=== PATIENT | female | born 2000 ===

== ENCOUNTER 2021-05-12 09:49 | Emergency (ER) | payer SELFPAY ==
[2021-05-12 10:25] VITALS: BP 134/91
[2021-05-12 10:29] LABS: Bacteria,Urine 3+ /HPF (Negative); Bilirubin,Urine NEG (Negative); Blood,Urine NEG (Negative); Color,Urine Yellow (Yellow); Mucus,Urine 3+ /HPF; Urobilinogen,Urine < 2.0 mg/dL (<2.0)
[2021-05-12 10:37] LABS: Basophils % (Auto) 0.4 % (0.0-1.8); Eosinophils # (Auto) 0.2 K/mm3 (0.0-0.4); Eosinophils % (Auto) 4.8 % (0.0-4.3); Hematocrit 36.4 % (30.3-42.9); Hemoglobin 12.7 gm/dl (10.1-14.3); Lymphocytes # (Auto) 1.1 K/mm3 (1.2-5.4); Mean Corpuscular HGB Conc 35 % (30-34); Mean Corpuscular Volume 97 fl (79-97); Monocytes # (Auto) 0.3 K/mm3 (0.0-0.8); Monocytes % (Auto) 6.2 % (0.0-7.3); Platelet Count 252 K/mm3 (140-440); Red Blood Count 3.76 M/mm3 (3.65-5.03); Red Cell Distribution Width 12.2 % (13.2-15.2)
--- NOTE | 2021-05-12 10:38 | Emergency Department Report ---
ED Abdominal Pain HPI - General Chief Complaint: Nausea/Vomiting/Diarrhea Stated Complaint: , DONT FEEL WELL Time Seen by Provider: 05/12/21 10:00 Source: patient Mode of arrival: Ambulatory Limitations: No Limitations - History of Present Illness Initial Comments: 20-year-old female presents to the emergency room for nausea but feels like food comes up to the back of her throat. She states she took a home test about 3 days ago and is positive. She states her last menstrual period was April 11, 2021. She does report right upper quadrant abdominal pain and righ middle abdominal pain. She states that it is throbbing and achy.. She is 3 para 2 with for last baby 4 months ago. She denies any vaginal discharge denies any vaginal bleeding no pelvic cramping. She denies any dysuria but does report urinary urgency and frequency. She states she just has not been feeling well for about a week. She states that she has been having nausea but has not vomited. Patient does not have a primary care provider. She delivered her last baby in [place]. MD Complaint: abdominal pain - Related Data Previous Rx's Medication Instructions Recorded Last Taken Type Nitrofurantoin Nicol[place]/M-Cryst 100 mg PO Q12HR 7 Days #14 capsule 05/12/21 Unknown Rx [Macrobid CAP] Allergies Allergy/AdvReac Type Severity Reaction Status Date / Time No Known Allergies Allergy Verified 05/12/21 09:58 ED Review of Systems ROS: Stated complaint: , DONT FEEL WELL Other details as noted in HPI ED Past Medical Hx - Medications Home Medications: Home Medications Medication Instructions Recorded Confirmed Last Taken Type Nitrofurantoin [place]/M-Cryst 100 mg PO Q12HR 7 Days #14 capsule 05/12/21 Unknown Rx [Macrobid CAP] ED Physical Exam - General Limitations: No Limitations General appearance: alert, in no apparent distress - Head Head exam: Present: atraumatic, normocephalic - Eye Eye exam: Present: normal appearance - ENT ENT exam: Present: mucous membranes moist - Neck Neck exam: Present: normal inspection - Respiratory Respiratory exam: Present: normal lung sounds bilaterally. Absent: respiratory distress, accessory muscle use - Cardiovascular Cardiovascular Exam: Present: regular rate - GI/Abdominal GI/Abdominal exam: Present: soft, tenderness (Right upper quadrant), normal bowel sounds. Absent: distended, guarding, rebound - Extremities Exam Extremities exam: Present: normal inspection, full ROM - Back Exam Back exam: Present: normal inspection - Neurological Exam Neurological exam: Present: alert, oriented X3, normal gait - Psychiatric Psychiatric exam: Present: normal affect, normal mood - Skin Skin exam: Present: warm, dry, intact, normal color. Absent: rash ED Course Vital Signs 05/12/21 10:10 Temperature 98.2 F Pulse Rate 90 Respiratory 18 Rate Blood Pressure 134/91 [Left] O2 Sat by Pulse 98 Oximetry ED Medical Decision Making - Lab Data Result diagrams: 05/12/21 10:24 05/12/21 10:24 Laboratory Tests 05/12/21 05/12/21 05/12/21 10:24 10:24 10:24 WBC 4.6 RBC 3.76 Hgb 12.7 Hct 36.4 MCV 97 MCH 34 H MCHC 35 H RDW 12.2 L Plt Count 252 Lymph % (Auto) 25.0 Nicollet % (Auto) 6.2 Eos % (Auto) 4.8 H Baso % (Auto) 0.4 Lymph # (Auto) 1.1 L Nicol[place] # (Auto) 0.3 Eos # (Auto) 0.2 Baso # (Auto) 0.0 Seg Neutrophils % 63.6 Seg Neutrophils # 2.9 Sodium 140 Potassium 3.8 Chloride 105.9 Carbon Dioxide 21 L Anion Gap 17 BUN 14 Creatinine 0.4 L Estimated GFR > 60 BUN/Creatinine Ratio 35 Glucose 95 Calcium 9.0 Total Bilirubin 0.50 AST 11 ALT 7 Alkaline Phosphatase 71 Total Protein 7.5 Albumin 4.4 Albumin/Globulin Ratio 1.4 Lipase 17 HCG, Quant 5039 H Urine Color Urine Turbidity Urine pH Ur Specific [place] Urine Protein Urine Glucose (UA) Urine Ketones Urine Blood Urine Nitrite Urine Bilirubin Urine Urobilinogen Ur Leukocyte Esterase Urine WBC (Auto) Urine RBC (Auto) U Epithel Cells (Auto) Urine Bacteria (Auto) Urine Mucus 05/12/21 Unknown WBC RBC Hgb Hct MCV MCH MCHC RDW Plt Count Lymph % (Auto) Nicollet % (Auto) Eos % (Auto) Baso % (Auto) Lymph # (Auto) Nicollet # (Auto) Eos # (Auto) Baso # (Auto) Seg Neutrophils % Seg Neutrophils # Sodium Potassium Chloride Carbon Dioxide Anion Gap BUN Creatinine Estimated GFR BUN/Creatinine Ratio Glucose Calcium Total Bilirubin AST ALT Alkaline Phosphatase Total Protein Albumin Albumin/Globulin Ratio Lipase HCG, Quant Urine Color Yellow Urine Turbidity Cloudy Urine pH 5.0 Ur Specific [place] 1.021 Urine Protein 30 mg/dl Urine Glucose (UA) Neg Urine Ketones Neg Urine Blood Neg Urine Nitrite Neg Urine Bilirubin Neg Urine Urobilinogen < 2.0 Ur Leukocyte Esterase Lg Urine WBC (Auto) 26.0 H Urine RBC (Auto) 3.0 U Epithel Cells (Auto) 36.0 H Urine Bacteria (Auto) 3+ Urine Mucus 3+ - Medical Decision Making 20-year-old female presents to the emergency room for nausea but feels like food comes up to the back of her throat. She states she took a home test about 3 days ago and is positive. She states her last menstrual period was April 11, 2021. She does report right upper quadrant abdominal pain and righ middle abdominal pain. She states that it is throbbing and achy.. She is 3 para 2 with for last baby 4 months ago. She denies any vaginal discharge denies any vaginal bleeding no pelvic cramping. She denies any dysuria but does report urinary urgency and frequency. She states she just has not been feeling well for about a week. She states that she has been having nausea but has not vomited. Patient does not have a primary care provider. She delivered h er last baby in [place]. CBC CMP lipase urinalysis hCG. CBC CMP within normal limits urinalysis shows a urinary tract infection with large amount of leukoesterase hCG's little over 5000. Patient is to follow-up with [facility] complete antibiotics of Macrobid increase your fluid intake. Critical care attestation.: If time is entered above; I have spent that time in minutes in the direct care of this critically ill patient, excluding procedure time. ED Disposition Clinical Impression: UTI (urinary tract infection) Qualifiers: Urinary tract infection type: site unspecified Hematuria presence: without hematuria Qualified Code(s): N39.0 - Urinary tract infection, site not specified Disposition: 01 HOME / SELF CARE / HOMELESS Is pt being admited?: No Does the pt Need Aspirin: No Condition: Stable Instructions: and Urinary Tract Infection Additional Instructions: Labs are stable. You have a urinary tract infection you need to complete antibiotics as prescribed. Increase your water intake. Follow-up with your [facility]. Prescriptions: Nitrofurantoin [place]/M-Cryst [Macrobid CAP] 100 mg PO Q12HR 7 Days #14 capsule Referrals: PRIMARY CARE, [Primary Care Provider] - 3-5 Days [facility] [Provider Group] - 3-5 Days [facility] [Provider Group] - 3-5 Days [facility] [Provider Group] - 3-5 Days [facility] [Provider Group] - 3-5 Days Forms: Work/School Release Form(ED) Time of Disposition: 11:13
[2021-05-12 11:01] LABS: Alanine Aminotransferase 7 units/L (7-56); Albumin 4.4 g/dL (3.9-5); Blood Urea Nitrogen 14 mg/dL (7-17); Hemolysis Index 8
[2021-05-12 11:07] LABS: BUN/Creatinine Ratio 35
== END 2021-05-12 11:41 | disposition home or self-care (01) ==
LOC: ED 09:49
DX: O23.41 Unspecified infection of urinary tract in pregnancy, first trimester (principal); N39.0 Urinary tract infection, site not specified; R11.0 Nausea; Z3A.00 Weeks of gestation of pregnancy not specified
CPT/HCPCS: 36415; 80053; 81001; 83690; 84702; 85025; 87086; 99283